=== PATIENT | male | born 1975 | race Caucasian/White ===

== ENCOUNTER 2016-12-31 13:35 | Emergency (ER) | payer MEDICAID, OTHER ==
[2016-12-31 14:16] LABS: Hematocrit 39.9 % (35.5-45.6); Hemoglobin 13.6 gm/dl (11.8-15.2); Mean Corpuscular HGB Conc 34 % (32-34); Mean Corpuscular Hemoglobin 30 pg (28-32); Mean Corpuscular Volume 88 fl (84-94); Platelet Count 164 K/mm3 (140-440); Red Blood Count 4.53 M/mm3 (3.65-5.03); Red Cell Distribution Width 13.2 % (13.2-15.2); White Blood Count 8.1 K/mm3 (4.5-11.0)
[2016-12-31 14:38] LABS: Alanine Aminotransferase 19 units/L (7-56); Albumin 3.7 g/dL (3.9-5); Albumin/Globulin Ratio 1.3 %; Alkaline Phosphatase 61 units/L (35-129); Anion Gap 17 mmol/L; BUN/Creatinine Ratio 11.25; Blood Urea Nitrogen 9 mg/dL (9-20); Calcium 8.7 mg/dL (8.4-10.2); Carbon Dioxide 24 mmol/L (22-30); Chloride 104.6 mmol/L (98-107); Glucose 87 mg/dL (75-100); Potassium 3.5 mmol/L (3.6-5.0); Sodium 142 mmol/L (137-145); Total Protein 6.5 g/dL (6.3-8.2)
[2016-12-31] MEDS ORDERED: NACL 0.9% 500 ML 500 ML IV ONE (15:00)
--- NOTE | 2016-12-31 16:51 | Emergency Department Report ---
HPI - General Chief Complaint: Syncope Time Seen by Provider: 12/31/16 14:58 - HPI HPI: The patient is a 41-year-old male presents for evaluation of lightheadedness and syncope. The patient reports that one hour prior to arrival, he experienced sudden onset of severe lightheadedness while at a [employer], exacerbated with standing up and ablation, improving with lying flat and rest. The patient denies fever, headache, neck pain, chest pain, paresthesias, focal motor weakness, blurry vision, ear pain, tinnitus, chest pain, hemoptysis, dyspnea, abdominal pain, or recent URI or diarrhea. ED Past Medical Hx - Past Medical History Previous Medical History?: No - Surgical History Past Surgical History?: No Additional Surgical History: sx 1985 Cx L leg - Social History Smoking Status: Never Smoker Substance Use Type: None - Medications Home Medications: Home Medications Medication Instructions Recorded Confirmed Last Taken Type HYDROcodone/APAP 5-325 [[place] 1 each PO Q6HR PRN #21 tablet 11/06/14 Unknown Rx 5-325 mg TAB] Acetaminophen/Codeine [Tylenol #3] 1 tab PO Q6H PRN #20 tab 02/28/15 Unknown Rx Cyclobenzaprine HCl [Flexeril 5 MG 5 mg PO Q8HR #20 tablet 02/28/15 Unknown Rx TAB] ED Review of Systems ROS: Stated complaint: SYNCOPE EPISODE Other details as noted in HPI Constitutional: denies: fever; reports lightheadedness and syncope ENT: denies: throat or neck pain Respiratory: denies: cough, shortness of breath Cardiovascular: denies: chest pain Endocrine: denies unexplained weight loss or gain Gastrointestinal: denies: abdominal pain, nausea Genitourinary: denies: dysuria Musculoskeletal: denies: leg swelling Skin: denies: rash Neurological: denies: headache Hematological/Lymphatic: denies: easy bleeding or easy bruising Psych: denies sadness or hopelessness Physical Exam - Physical Exam Vital Signs: Vital Signs 12/31/16 12/31/16 13:54 14:39 Temperature 98.6 F Pulse Rate 60 Respiratory 16 18 Rate Blood Pressure 114/67 O2 Sat by Pulse 99 100 Oximetry Physical Exam: General: well-nourished, well-developed, no acute distress Head: Normocephalic, atraumatic Eyes: normal sclera, EOMI, PERRL, no nystagmus ENT: Mucous membranes are pale and dry Neck: No neck stiffness, no cervical adenopathy Respiratory: Breath sounds equal bilaterally, no wheezing, rales, or rhonchi Cardio: S1 and S2 present, no murmurs, rubs, gallops, capillary refill is delayed Abdomen: Normoactive bowel sounds, soft abdomen, no tenderness Chest WALL/Back: No tenderness to palpation of the chest wall, no CVA tenderness with percussion Musc: No pitting edema Skin: No rash Neuro: Alert oriented 3, no facial drooping, normal speech, no pronator drift, no sensation motor deficit in the arms or legs, reflexes 2+ symmetric on DTR testing, no Deficit with finger to nose or [id number] testing, Romberg negative, no gross neuro deficits on exam Psych: Normal affect ED Course Vital Signs 12/31/16 12/31/16 13:54 14:39 Temperature 98.6 F Pulse Rate 60 Respiratory 16 18 Rate Blood Pressure 114/67 O2 Sat by Pulse 99 100 Oximetry ED Medical Decision Making - Lab Data Result diagrams: 12/31/16 14:08 12/31/16 14:08 - Medical Decision Making The patient was seen and examined by myself. The patient is placed on a heel seat sander and continuous pulse ox. On initial evaluation, the patient was found to be in no distress. Evaluation orders were placed. EKG is unremarkable. The patient is given normal saline fluid bolus for treatment of dehydration. Lab results were grossly unremarkable. The patient was reevaluated and reported that his symptoms were markedly improved. The patient is stable for discharge with outpatient follow-up. The patient is given follow-up and return instructions. The patient expressed understanding and agreed with the plan. The patient is discharged in stable condition. Critical care attestation.: If time is entered above; I have spent that time in minutes in the direct care of this critically ill patient, excluding procedure time. ED Disposition Clinical Impression: Dehydration, Dizziness, Orthostatic syncope Disposition: - TO HOME OR SELFCARE Is pt being admited?: No Does the pt Need Aspirin: No Condition: Stable Instructions: Syncope (ED), Dehydration (ED), Lightheadedness (ED) Referrals: PRIMARY CARE, [Primary Care Provider] - 3-5 Days Time of Disposition: 16:51
[2016-12-31 17:01] LABS: Bilirubin,Urine NEG (Negative); Blood,Urine NEG (Negative); Ketones,Urine NEG (Negative); Leukocyte Esterase,Urine TR (Negative); Mucus,Urine 2+ /HPF; Nitrite,Urine NEG (Negative); Protein,Urine <15 mg/dL mg/dL (Negative)
[2016-12-31 17:07] VITALS: BP 108/66
== END 2016-12-31 17:49 | disposition home or self-care (01) ==
LOC: ED 13:35
DX: E86.0 Dehydration (principal); R42 Dizziness and giddiness; R55 Syncope and collapse; Z88.8 Allergy status to other drugs, medicaments and biological substances
CPT/HCPCS: 36415; 80053; 81001; 82962; 85027; 93005; 93010; 96360; 99284; J7040

== ENCOUNTER 2017-02-25 11:10 | Emergency (ER) | payer SELFPAY ==
[2017-02-25] MEDS ORDERED: NACL 0.9% 1000 ML 1,000 ML IV ONE ×2 (11:48→14:36)
[2017-02-25] MEDS ORDERED: MORPHINE IV ONE ×2 (11:48→14:36)
[2017-02-25] MEDS ORDERED: ZOFRAN IV ONE ×2 (11:48→14:36)
[2017-02-25 12:13] LABS: Basophils % (Auto) 0.7 % (0.0-1.8); Eosinophils % (Auto) 0.5 % (0.0-4.3); Hematocrit 44.1 % (35.5-45.6); Hemoglobin 14.8 gm/dl (11.8-15.2); Mean Corpuscular HGB Conc 34 % (32-34); Mean Corpuscular Hemoglobin 30 pg (28-32); Mean Corpuscular Volume 90 fl (84-94); Platelet Count 190 K/mm3 (140-440); Red Blood Count 4.92 M/mm3 (3.65-5.03); Red Cell Distribution Width 13.3 % (13.2-15.2)
[2017-02-25 12:21] LABS: Anion Gap 20 mmol/L; BUN/Creatinine Ratio 11.25; Blood Urea Nitrogen 9 mg/dL (9-20); Calcium 9.4 mg/dL (8.4-10.2); Carbon Dioxide 23 mmol/L (22-30); Chloride 100.6 mmol/L (98-107); Glucose 82 mg/dL (75-100); Potassium 4.1 mmol/L (3.6-5.0); Sodium 139 mmol/L (137-145)
--- NOTE | 2017-02-25 14:20 | Cat Scan Report ---
CT PELVIS WITH CONTRAST INDICATION: Possible perirectal abscess. COMPARISON: None similar. FINDINGS: Pelvis CT performed following oral and rectal contrast and demonstrates normal imaged distal descending colon and the rectosigmoid. Normal appendix. Nonobstructive bowel gas pattern. Urinary bladder, seminal vesicles and prostate also within normal limits. However, as on axial series 2, images 80-94, subtle posterior midline hypodensity at the anus measuring 1.4 x 0.9 cm, axial image 84, series 2 and approximately 2.5 cm craniocaudal may represent a subtle abscess. Subtle fat stranding about the anus as also in the gluteal soft tissues medially, more so on the left suspected as on axial images 90-97. No pelvic free fluid. Few bilateral inguinal lymph nodes measure up to 2.7 x 1.2 cm on the left, axial image 70. L5-S1 slight vacuum disc phenomenon and a pars defect on the left incidentally noted. CONCLUSION: 1. CT findings suspicious for subtle perianal abscess posteriorly, as described. 2. Few other incidental findings, including at L5-S1, as above. Thank you for the opportunity to participate in this patient's care.
[2017-02-25] MEDS ORDERED: CLEOCIN 900 MG/50 mL 900 MG/50 ML BAG IV ONE (14:36)
--- NOTE | 2017-02-25 15:08 | Emergency Department Report ---
ED General Adult HPI - General Chief complaint: Rectal Pain Stated complaint: CYST/SEVERE PAIN Time Seen by Provider: 02/25/17 11:46 Source: patient Mode of arrival: Wheelchair Limitations: No Limitations - History of Present Illness Initial comments: 41 year old male presents with rectal pain for about 2 weeks with symptoms worse today. states that it is aching and throbbing with a lot of pressure to the rectum. states taking otc medication with no relief. states that today it is the most painful which prompted him to come to the ED. denies fever or pus drainage. -: Gradual, week(s) (2) Severity scale (0 -10): 10 Quality: aching, constant Consistency: constant Improves with: none Associated Symptoms: denies other symptoms. denies: confusion, chest pain, cough, diaphoresis, headaches, nausea/vomiting, rash - Related Data Previous Rx's Medication Instructions Recorded Last Taken Type HYDROcodone/APAP 5-325 [[place] 1 each PO Q6HR PRN #21 tablet 11/06/14 Unknown Rx 5-325 mg TAB] Acetaminophen/Codeine [Tylenol #3] 1 tab PO Q6H PRN #20 tab 02/28/15 Unknown Rx Cyclobenzaprine HCl [Flexeril 5 MG 5 mg PO Q8HR #20 tablet 02/28/15 Unknown Rx TAB] Amoxicillin/K Clav Tab [Augmentin 1 tab PO Q12HR #14 tab 02/25/17 Unknown Rx 875 mg] Clindamycin [Clindamycin CAP] 450 mg PO Q8HR #63 capsule 02/25/17 Unknown Rx HYDROcodone/APAP 5-325 [[place] 1 each PO Q6HR PRN #14 tablet 02/25/17 Unknown Rx 5/325] Ibuprofen [Motrin] 800 mg PO Q8HR PRN #20 tablet 02/25/17 Unknown Rx Allergies Allergy/AdvReac Type Severity Reaction Status Date / Time ketorolac tromethamine Allergy Swelling Verified 02/25/17 11:17 [From Toradol] ED Review of Systems ROS: Stated complaint: CYST/SEVERE PAIN Other details as noted in HPI Constitutional: denies: chills, fever Eyes: denies: eye pain, eye discharge, vision change ENT: denies: ear pain, throat pain Respiratory: denies: cough, shortness of breath, wheezing Cardiovascular: denies: chest pain, palpitations Endocrine: no symptoms reported Gastrointestinal: other (rectal pain). denies: abdominal pain, nausea, diarrhea Genitourinary: denies: urgency, dysuria Musculoskeletal: denies: back pain, joint swelling, arthralgia Skin: denies: rash, lesions Neurological: denies: headache, weakness, paresthesias Psychiatric: denies: anxiety, depression Hematological/Lymphatic: denies: easy bleeding, easy bruising ED Past Medical Hx - Past Medical History Previous Medical History?: Yes - Surgical History Past Surgical History?: Yes Additional Surgical History: sx 1985 Cx L leg - Social History Smoking Status: Current Every Day Smoker Substance Use Type: None - Medications Home Medications: Home Medications Medication Instructions Recorded Confirmed Last Taken Type HYDROcodone/APAP 5-325 [[place] 1 each PO Q6HR PRN #21 tablet 11/06/14 Unknown Rx 5-325 mg TAB] Acetaminophen/Codeine [Tylenol #3] 1 tab PO Q6H PRN #20 tab 02/28/15 Unknown Rx Cyclobenzaprine HCl [Flexeril 5 MG 5 mg PO Q8HR #20 tablet 02/28/15 Unknown Rx TAB] Amoxicillin/K Clav Tab [Augmentin 1 tab PO Q12HR #14 tab 02/25/17 Unknown Rx 875 mg] Clindamycin [Clindamycin CAP] 450 mg PO Q8HR #63 capsule 02/25/17 Unknown Rx HYDROcodone/APAP 5-325 [[place] 1 each PO Q6HR PRN #14 tablet 02/25/17 Unknown Rx 5/325] Ibuprofen [Motrin] 800 mg PO Q8HR PRN #20 tablet 02/25/17 Unknown Rx ED Physical Exam - General Limitations: No Limitations General appearance: alert, in no apparent distress - Head Head exam: Present: atraumatic, normocephalic - Eye Eye exam: Present: normal appearance - ENT ENT exam: Present: mucous membranes moist - Neck Neck exam: Present: normal inspection - Respiratory Respiratory exam: Present: normal lung sounds bilaterally. Absent: respiratory distress - Cardiovascular Cardiovascular Exam: Present: regular rate, normal rhythm. Absent: systolic murmur, diastolic murmur, rubs, gallop - GI/Abdominal GI/Abdominal exam: Present: soft, normal bowel sounds, other (rectal tenderness. no obvious swelling, induration, fluctuance.) - Rectal Rectal exam: Present: deferred - Extremities Exam Extremities exam: Present: normal inspection - Back Exam Back exam: Present: normal inspection - Neurological Exam Neurological exam: Present: alert, oriented X3 - Psychiatric Psychiatric exam: Present: normal affect, normal mood - Skin Skin exam: Present: warm, dry, intact, normal color. Absent: rash ED Course Vital Signs 02/25/17 02/25/17 11:18 11:58 Temperature 98 F Pulse Rate 70 Respiratory 24 30 H Rate Blood Pressure 132/85 O2 Sat by Pulse 100 Oximetry ED Medical Decision Making - Lab Data Result diagrams: 02/25/17 11:57 02/25/17 11:57 Vital Signs 02/25/17 02/25/17 02/25/17 11:18 11:58 14:55 Temperature 98 F Pulse Rate 70 Respiratory 24 30 H 24 Rate Blood Pressure 132/85 O2 Sat by Pulse 100 Oximetry 02/25/17 15:00 Temperature Pulse Rate Respiratory 24 Rate Blood Pressure O2 Sat by Pulse Oximetry Laboratory Results - last 24 hr 02/25/17 02/25/17 11:57 11:57 WBC 13.0 H RBC 4.92 Hgb 14.8 Hct 44.1 MCV 90 MCH 30 MCHC 34 RDW 13.3 Plt Count 190 Lymph % (Auto) 18.4 [place] % (Auto) 6.0 Eos % (Auto) 0.5 Baso % (Auto) 0.7 Lymph # 2.4 [place] # 0.8 Eos # 0.1 Baso # 0.1 Seg Neutrophils % 74.4 H Seg Neutrophils # 9.6 H Sodium 139 Potassium 4.1 Chloride 100.6 Carbon Dioxide 23 Anion Gap 20 BUN 9 Creatinine 0.8 Estimated GFR > 60 BUN/Creatinine Ratio 11.25 Glucose 82 Calcium 9.4 - Radiology Data subtle perianal abscess on CT pelvis. - Medical Decision Making patient states relief with medication in the ED. no obvious abscess to drain in the ED so will manage with ABX starting here with IV clindamycin. spoke with Dr costello who agrees with plan. NAD at this time. VSS for DC. - Differential Diagnosis perirectal abscess Critical care attestation.: If time is entered above; I have spent that time in minutes in the direct care of this critically ill patient, excluding procedure time. ED Disposition Clinical Impression: Cellulitis of perianal area Disposition: DC-01 TO HOME OR SELFCARE Is pt being admited?: No Does the pt Need Aspirin: No Condition: Good Instructions: Cellulitis (ED) Prescriptions: Amoxicillin/K Clav Tab [Augmentin 875 mg] 1 tab PO Q12HR #14 tab Clindamycin [Clindamycin CAP] 450 mg PO Q8HR #63 capsule HYDROcodone/APAP 5-325 [[place] 5/325] 1 each PO Q6HR PRN #14 tablet PRN Reason: Pain Ibuprofen [Motrin] 800 mg PO Q8HR PRN #20 tablet PRN Reason: Pain Referrals: PRIMARY CAREMD [Primary Care Provider] - 3-5 Days CARLTON BO MD [Staff Physician] - 3-5 Days Forms: Work/School Release Form(ED) Time of Disposition: 15:36
[2017-02-25 17:08] VITALS: BP 112/58
== END 2017-02-25 17:08 | disposition home or self-care (01) ==
LOC: ED 11:10
DX: L03.315 Cellulitis of perineum (principal); F17.200 Nicotine dependence, unspecified, uncomplicated
CPT/HCPCS: 36415; 72193; 80048; 85025; 96361; 96365; 96375; 96376; 99284; J2270; J2405; J7030; Q9967